=== PATIENT | male | born 1940 | race Hispanic/Latino ===

== ENCOUNTER 2017-10-23 11:35 | Emergency (ER) | payer MEDICARE ==
[2017-10-23 11:37] VITALS: PULSE 120; BMI 33.0
[2017-10-23 11:54] VITALS: O2SAT 97
[2017-10-23] MEDS ORDERED: Sodium Chloride 0.9% 1,000 ML IV SCH (12:00)
--- NOTE | 2017-10-23 12:10 | ED PDOC ---
Arrival/HPI - General Chief Complaint: Trauma Time Seen by Provider: 10/23/17 11:43 Historian: Patient - History of Present Illness Narrative History of Present Illness (Text): 10/23/17 12:00 77 year old male, with past medical history of hypertension, CHF, and diabetes, presents to the Emergency department accompanied with complaining of multiple falls in the past week. Patient informs associated mild weakness. Patient denies any loss of consciousness but states mild headache. Patient denies any fever, chills, nausea, vomiting, diarrhea, dysuria, abdominal pain, chest pain, shortness of breath or any other complaints. PMD: Dr. Jha Time/Duration: 1 week Symptom Onset: Gradual Symptom Course: Unchanged Quality: Aching Activities at Onset: Light Context: Home Past Medical History - Provider Review Nursing Documentation Reviewed: Yes - Infectious Disease Hx of Infectious Diseases: None - Tetanus Immunization Tetanus Immunization: Unknown - Cardiac Hx Cardiac Disorders: Yes (CAD w/ stents, AFIB) Hx Congestive Heart Failure: Yes Hx Hypertension: Yes - Pulmonary Hx Respiratory Disorders: Yes Hx Pneumonia: Yes - Neurological Hx Dementia: Yes - HEENT Hx HEENT Disorder: No - Renal Hx Kidney Stones: Yes - Endocrine/Metabolic Hx Diabetes Mellitus Type 2: Yes - Hematological/Oncological Other/Comment: blood transfusion - Integumentary Hx Dermatological Disorder: No - Musculoskeletal/Rheumatological Hx Arthritis: Yes Hx Falls: Yes - Gastrointestinal Hx Diverticulitis: Yes Other/Comment: weight loss - Genitourinary/Gynecological Hx Genitourinary Disorders: Yes (renal stents) - Psychiatric Hx Emotional Abuse: No Hx Physical Abuse: No Hx Substance Use: No - Surgical History Hx Cardiac Catheterization: Yes Other/Comment: 1994 diverticulitis led to colon resection and colostomy for 3 months then reversed, incisional hernia repair and insertion of mesh, exp lap removal of mesh, then reinserted again11/11/2012, bilateral stent removal done today, ptca with stent, cardiac cath, picc line inserted and removed - Anesthesia Hx Anesthesia: Yes Hx Anesthesia Reactions: No Hx Malignant Hyperthermia: No - Suicidal Assessment Feels Threatened In Home Enviroment: No Family/Social History - Physician Review Nursing Documentation Reviewed: Yes Family/Social History: No Known Family HX Smoking Status: Former Smoker Hx Alcohol Use: No Hx Substance Use: No Hx Substance Use Treatment: No Allergies/Home Meds Allergies/Adverse Reactions: Allergies TOMATOES Allergy (Unknown, Uncoded 10/23/17 11:47) ANGIOEDEMA Review of Systems - Physician Review All systems were reviewed & negative as marked: Yes - Review of Systems Constitutional: Normal. absent: Fevers Eyes: Normal ENT: Normal Respiratory: Normal. absent: SOB Cardiovascular: Normal. absent: Chest Pain Gastrointestinal: Normal. absent: Abdominal Pain, Diarrhea, Nausea, Vomiting Genitourinary Male: Normal. absent: Dysuria Musculoskeletal: Normal Skin: Normal Neurological: Headache Endocrine: Normal Hemo/Lymphatic: Normal Psychiatric: Normal Physical Exam Vital Signs Reviewed: Yes Vital Signs Temp Pulse Resp BP Pulse Ox 10/23/17 19:47 70 18 180/78 H 97 10/23/17 15:33 97.5 F L 60 20 167/97 H 97 10/23/17 11:53 97.7 F 59 L 18 162/88 H 97 Temperature: Afebrile Blood Pressure: Hypertensive Pulse: Regular Respiratory Rate: Normal Appearance: Positive for: Well-Appearing, Non-Toxic, Comfortable, Other (Obese) Pain Distress: None Mental Status: Positive for: Alert and Oriented X 3 - Systems Exam Head: Present: Atraumatic, Normocephalic Pupils: Present: PERRL Extroacular Muscles: Present: EOMI Conjunctiva: Present: Normal Mouth: Present: Moist Mucous Membranes Neck: Present: Normal Range of Motion Respiratory/Chest: Present: Clear to Auscultation, Good Air Exchange. No: Respiratory Distress, Accessory Muscle Use Cardiovascular: Present: Regular Rate and Rhythm, Normal S1, S2, Other (well healed midline surgical scar on chest). No: Murmurs Abdomen: Present: Normal Bowel Sounds. No: Tenderness, Distention, Peritoneal Signs Back: Present: Normal Inspection Upper Extremity: Present: Normal Inspection. No: Cyanosis, Edema Lower Extremity: Present: Normal Inspection. No: Edema Neurological: Present: GCS=15, CN II-XII Intact, Speech Normal Skin: Present: Warm, Dry, Normal Color. No: Rashes Psychiatric: Present: Alert, Oriented x 3, Normal Insight, Normal Concentration Medical Decision Making ED Course and Treatment: 10/23/17 12:11 Impression: 77 year old male presents to the Emergency department s/p multiple falls. Plan: -- CT of Head w/o contrast -- EKG -- Labs -- Chest X-ray -- IV Fluids -- Urine Culture -- Urinalysis -- Reassess and disposition Progress Notes: 10/23/17 13:10 EKG: Ordered, reviewed, and independently interpreted the EKG. Rate : 57 BPM Rhythm : Sinus bradycardia. Interpretation : Right BBB. Left axis deviation. 10/23/17 13:39 CT of head reviewed by radiologist, shows no acute findings. 10/23/17 13:39 Chest X-ray reviewed by radiologist, shows no active disease. 10/23/17 17:53 Discussed lab results with Dr. Jha, who is aware and agrees with plan to discharge patient with antibiotics and follow-up instructions with PMD. - Lab Interpretations Lab Results: 10/23/17 12:23 10/23/17 16:35 Lab Results 10/23/17 16:35: Sodium 144, Potassium 4.9, Chloride 108 H, Carbon Dioxide 29, Anion Gap 12, BUN 21, Creatinine 1.1, Est GFR ( Amer) > 60, Est GFR (Non- Af Amer) > 60, Random Glucose 197 H, Calcium 10.2, Magnesium 1.9, Total Bilirubin 0.6, AST 28, ALT 28, Alkaline Phosphatase 107, Lactate Dehydrogenase 627, Total Creatine Kinase 59, Troponin I 0.02 D, NT-Pro-B Natriuret Pep 621 H , Total Protein 7.2, Albumin 3.9, Globulin 3.3, Albumin/Globulin Ratio 1.2 10/23/17 13:40: Urine Color Yellow, Urine Appearance Sl cloudy, Urine pH 6.0, Ur Specific [place] 1.020, Urine Protein 30 H, Urine Glucose (UA) >=1000, Urine Ketones Negative, Urine Blood Trace-intact H, Urine Nitrate Positive H, Urine Bilirubin Negative, Urine Urobilinogen 0.2, Ur Leukocyte Esterase Small H, Urine RBC 2 - 5, Urine WBC 20 - 25, Ur Epithelial Cells 1 - 3, Amorphous Sediment Few, Urine Bacteria Many 10/23/17 12:23: WBC 6.9, RBC 5.38, Hgb 16.5, Hct 46.9, MCV 87.2, MCH 30.7, MCHC 35.2, RDW 13.6, Plt Count 135, MPV 9.7, Gran % 60.5, Lymph % (Auto) 19.5 L, [place] % (Auto) 16.7 H, Eos % (Auto) 3.2, Baso % (Auto) 0.1, Gran # 4.16, Lymph # (Auto) 1.3, [place] # (Auto) 1.2 H, Eos # (Auto) 0.2, Baso # (Auto) 0.01 - RAD Interpretation Radiology Orders: 10/23/17 12:00 HEAD W/O CONTRAST [CT] Stat CHEST PORTABLE [RAD] Stat Disaster Recovery Analyst: Radiologist - EKG Interpretation Interpreted by ED Physician: Yes Type: 12 lead EKG - Medication Orders Current Medication Orders: Sodium Chloride (Sodium Chloride 0.9%) 1,000 mls @ 100 mls/hr IV .Q10H TIFFANY Last Admin: 10/23/17 12:25 Dose: 100 mls/hr eMAR Start Stop Document 10/23/17 12:25 OCS (Rec: 10/23/17 12:26 OCS [id number]) Intravenous Solution Start Date 10/23/17 Start Time 12:25 - Scribe Statement The provider has reviewed the documentation as recorded by the Scribe Rich [place]. All medical record entries made by the Scribe were at my direction and personally dictated by me. I have reviewed the chart and agree that the record accurately reflects my personal performance of the history, physical exam, medical decision making, and the department course for this patient. I have also personally directed, reviewed, and agree with the discharge instructions and disposition. Disposition/Present on Arrival - Present on Arrival Any Indicators Present on Arrival: No History of DVT/PE: No History of Uncontrolled Diabetes: No Urinary Catheter: No History of Decub. Ulcer: No History Surgical Site Infection Following: None - Disposition Have Diagnosis and Disposition been Completed?: Yes Diagnosis: UTI (urinary tract infection) Disposition: HOME/ ROUTINE Disposition Time: 14:10 Patient Problems: Current Active Problems Problem Status Onset Urinary tract infection Acute Condition: GOOD Discharge Instructions (ExitCare): Asymptomatic Bacteriuria Additional Instructions: Thank you for letting us take care of you today. The emergency medical care you received today was directed at your acute symptoms. If you were prescribed any medication, please fill it and take as directed. It may take several days for your symptoms to resolve. Return to the Emergency Department if your symptoms worsen, do not improve, or if you have any other problems. Please contact your doctor or call one of the physicians/clinics you have been referred to that are listed on the Patient Visit Information form that is included in your discharge packet. Bring any paperwork you were given at discharge with you along with any medications you are taking to your follow up visit. Our treatment cannot replace ongoing medical care by a primary care provider (PCP) outside of the emergency department. Thank you for allowing the [facility] team to be part of your care today. Follow up with Dr. Jha in 3-4 days for re-evaluation and further management. Prescriptions: Nitrofurantoin Macrocrystals [Macrobid] 100 mg PO BID #14 cap Referrals: Alfonso Jha, [Primary Care Provider] - Follow up with primary Forms: [employer] ([place])
--- NOTE | 2017-10-23 12:20 | RAD ---
HISTORY: r/o infiltrate COMPARISON: 04/05/2016 FINDINGS: LUNGS: No active pulmonary disease. PLEURA: No significant pleural effusion identified, no pneumothorax apparent. CARDIOVASCULAR: Normal. OSSEOUS STRUCTURES: No significant abnormalities. VISUALIZED UPPER ABDOMEN: Normal. OTHER FINDINGS: None. IMPRESSION: No active disease.
[2017-10-23 12:40] LABS: BASO # 0.01 K/mm3 (0.0-2.0); BASO % 0.1 % (0.0-3.0); EOS # 0.2 (0.0-0.7); EOS % 3.2 % (1.5-5.0); GRAN # 4.16 (1.4-6.5); GRAN % 60.5 % (50.0-68.0); HEMOGLOBIN 16.5 g/dL (14.0-18.0); LYMPH # 1.3 (1.2-3.4); LYMPH % 19.5 % (22.0-35.0); MEAN CELL VOLUME 87.2 fl (80.0-105.0); MEAN CORPUSCULAR HEMOGLOBIN 30.7 pg (25.0-35.0); MEAN CORPUSCULAR HGB CONC 35.2 g/dl (31.0-37.0); MEAN PLATELET VOLUME 9.7 fl (7.0-11.0); MONO # 1.2 (0.1-0.6); MONO % 16.7 % (1.0-6.0); RBC 5.38 10^6/uL (3.5-6.1); RED CELL DISTRIBUTION WIDTH 13.6 % (11.5-14.5); WHITE BLOOD COUNT 6.9 10^3/ul (4.5-11.0)
--- NOTE | 2017-10-23 13:02 | CT ---
PROCEDURE: CT HEAD WITHOUT CONTRAST. HISTORY: multiple falls - c/o headache COMPARISON: 04/05/2016 TECHNIQUE: Axial computed tomography images were obtained through the head/brain without intravenous contrast. Radiation dose: Total exam DLP = 1017 mGy-cm. This CT exam was performed using one or more of the following dose reduction techniques: Automated exposure control, adjustment of the mA and/or kV according to patient size, and/or use of iterative reconstruction technique. FINDINGS: HEMORRHAGE: No intracranial hemorrhage. BRAIN: No mass effect or edema. No atrophy or chronic microvascular ischemic changes. VENTRICLES: Unremarkable. No hydrocephalus. CALVARIUM: Unremarkable. PARANASAL SINUSES: Unremarkable as visualized. No significant inflammatory changes. MASTOID AIR CELLS: Unremarkable as visualized. No inflammatory changes. OTHER FINDINGS: None. IMPRESSION: No acute findings
[2017-10-23 14:04] LABS: URINE BILIRUBIN NEGATIVE (NEGATIVE); URINE BLOOD TRACE-INTACT (NEGATIVE); URINE GLUCOSE (UA) >=1000 mg/dL (NEGATIVE); URINE LEUKOCYTE ESTERASE SMALL Leu/uL (NEGATIVE); URINE PROTEIN 30 mg/dL (<30 mg/dL); URINE UROBILINOGEN 0.2 E.U./dL (<1 E.U./dL)
[2017-10-23 14:06] LABS: URINE APPEARANCE SL CLOUDY (CLEAR); URINE COLOR YELLOW (YELLOW)
[2017-10-23 14:11] LABS: URINE WBC 20 - 25 /hpf (0-6)
[2017-10-23 14:12] LABS: URINE BACTERIA MANY (NEG)
[2017-10-23 14:13] LABS: URINE AMORPHOUS SEDIMENT FEW
[2017-10-23 15:34] VITALS: TEMP 97.5
[2017-10-23 17:15] LABS: ALB/GLOB RATIO 1.2 (1.1-1.8); ALBUMIN 3.9 g/dL (3.0-4.8); ALT/SGPT 28 U/L (7-56); AST/SGOT 28 U/L (17-59); BLOOD UREA NITROGEN 21 mg/dL (7-21); CALCIUM 10.2 mg/dL (8.4-10.5); GFR AFRICAN-AMERICAN > 60; GFR NON-AFRICAN AMERICAN > 60
[2017-10-23 17:49] LABS: B-TYPE NATRIURETIC PEPTIDE 621 pg/mL (0-450); TROPONIN I 0.02 ng/mL
[2017-10-23 19:47] VITALS: PULSE 70; RESP 18
[2017-10-23 19:53] VITALS: BP 180/78
--- NOTE | 2017-10-23 20:19 | CARD ---
APPROVED REPORT EKG Measurement Heart [id number] <Conclusion> Sinus bradycardia with 1st degree AV block Left axis deviation Right bundle branch block Minimal voltage criteria for LVH, may be normal variant T wave abnormality, consider lateral ischemia Abnormal ECG
== END 2017-10-23 21:00 | disposition home or self-care (01) ==
LOC: ED 11:35
DX: N39.0 Urinary tract infection, site not specified (principal); E11.9 Type 2 diabetes mellitus without complications; I10 Essential (primary) hypertension; I48.91 Unspecified atrial fibrillation; I25.10 Atherosclerotic heart disease of native coronary artery without angina pectoris; Z87.891 Personal history of nicotine dependence
CPT/HCPCS: 70450; 71045; 80053; 81001; 82550; 83615; 83735; 83880; 84484; 85025; 87086; 87181; 93005; 99285; J7040

== ENCOUNTER 2017-12-01 20:27 | Emergency (ER) | payer MEDICARE ==
[2017-12-01 20:28] VITALS: PULSE 120
--- NOTE | 2017-12-01 20:49 | ED PDOC ---
Arrival/HPI - General Time Seen by Provider: 12/01/17 20:40 Historian: Patient, Spouse - History of Present Illness Narrative History of Present Illness (Text): 12/01/17 20:47 This 77 yo male is brought to this ED by BLS for evaluation of head injury x [employer]. Patient stated he accidentally was hit his forehead with door. Denies LOC , neck pain, APPLE, diplopia, dysarthria, weakness, paresthesias, or abnormal gait. Last tetanus is unk. Time/Duration: Other (see hpi) Context: Home Past Medical History - Provider Review Nursing Documentation Reviewed: Yes - Infectious Disease Hx of Infectious Diseases: None - Tetanus Immunization Tetanus Immunization: Unknown - Cardiac Hx Cardiac Disorders: Yes (CAD w/ stents, AFIB) Hx Congestive Heart Failure: Yes Hx Hypertension: Yes - Pulmonary Hx Respiratory Disorders: Yes Hx Pneumonia: Yes - Neurological Hx Dementia: Yes - HEENT Hx HEENT Disorder: No - Renal Hx Kidney Stones: Yes - Endocrine/Metabolic Hx Diabetes Mellitus Type 2: Yes - Hematological/Oncological Other/Comment: blood transfusion - Integumentary Hx Dermatological Disorder: No - Musculoskeletal/Rheumatological Hx Arthritis: Yes Hx Falls: Yes - Gastrointestinal Hx Diverticulitis: Yes Other/Comment: weight loss - Genitourinary/Gynecological Hx Genitourinary Disorders: Yes (renal stents) - Psychiatric Hx Emotional Abuse: No Hx Physical Abuse: No Hx Substance Use: No - Surgical History Hx Cardiac Catheterization: Yes Other/Comment: 1994 diverticulitis led to colon resection and colostomy for 3 months then reversed, incisional hernia repair and insertion of mesh, exp lap removal of mesh, then reinserted again11/11/2012, bilateral stent removal done today, ptca with stent, cardiac cath, picc line inserted and removed - Anesthesia Hx Anesthesia: Yes Hx Anesthesia Reactions: No Hx Malignant Hyperthermia: No - Suicidal Assessment Feels Threatened In Home Enviroment: No Family/Social History - Physician Review Nursing Documentation Reviewed: Yes Family/Social History: Other (noncontributory) Smoking Status: Former Smoker Hx Alcohol Use: No Hx Substance Use: No Hx Substance Use Treatment: No Allergies/Home Meds Allergies/Adverse Reactions: Allergies TOMATOES Allergy (Unknown, Uncoded 10/23/17 11:47) ANGIOEDEMA Review of Systems - Review of Systems Constitutional: Normal. absent: Fatigue, Weight Change, Fevers Eyes: Normal ENT: Normal Respiratory: Normal Cardiovascular: Normal Gastrointestinal: Normal Genitourinary Male: Normal Musculoskeletal: Normal Skin: Laceration Neurological: Normal Endocrine: Normal Hemo/Lymphatic: Normal Psychiatric: Normal Physical Exam Vital Signs Temp Pulse Resp BP Pulse Ox 12/02/17 02:29 98.2 F 92 H 18 149/92 H 96 12/02/17 01:32 93 H 18 171/92 H 96 12/01/17 21:14 98.3 F 87 18 171/83 H 96 12/01/17 20:49 98.2 F 80 18 98 Temperature: Afebrile Blood Pressure: Normal Pulse: Regular Respiratory Rate: Normal Appearance: Positive for: Well-Appearing, Non-Toxic, Comfortable Pain Distress: None Mental Status: Positive for: Alert and Oriented X 3 - Systems Exam Head: Present: Normocephalic, Other ((+) left suprapubic laceration with surrounding ecchymosis. No raccoon sign. no barrera sign) Pupils: Present: PERRL, Other (no hyhema) Extroacular Muscles: Present: EOMI. No: Entrapment Conjunctiva: Present: Normal Ears: Present: Normal, NORMAL TM, Other (no hemotympanum) Mouth: Present: Moist Mucous Membranes Nose (External): Present: Atraumatic Nose (Internal): Present: Normal Inspection Neck: Present: Normal Range of Motion. No: Meningeal Signs, MIDLINE TENDERNESS , Paraspinal Tenderness Respiratory/Chest: Present: Clear to Auscultation, Good Air Exchange. No: Respiratory Distress, Accessory Muscle Use Cardiovascular: Present: Regular Rate and Rhythm, Normal S1, S2. No: Murmurs Abdomen: No: Tenderness, Distention, Peritoneal Signs Back: Present: Normal Inspection. No: CVA Tenderness Upper Extremity: Present: Normal Inspection, Normal ROM. No: Cyanosis, Edema Lower Extremity: Present: Normal Inspection, Normal ROM. No: Edema Neurological: Present: GCS=15, CN II-XII Intact, Speech Normal Skin: Present: Warm, Dry, Normal Color. No: Rashes Psychiatric: Present: Alert, Oriented x 3, Normal Insight, Normal Concentration Medical Decision Making ED Course and Treatment: 12/02/17 00:16 Re-evaluation. Patient feels better. Discussed results and plan with patient who expresses understanding. All questions answered and there is agreement with the plan to discharge home with instructions. Patient stable for discharge. Return if symptoms persist or worsen. I recommended patient to see his pmd in 1-2 days, for revaluation and wound check. To keep wound clean and dry for 2 days, then clean wound daily with soap and water. Return if symptoms worsen. CT Head was negative for ICH Re-evaluation Time: 00:17 Reassessment Condition: Re-examined, Improved - RAD Interpretation Narrative RAD Interpretations (Text): 12/02/17 00:18 CT HEAD W/O IMPRESSION: 1. No definite intracranial hemorrhage. 2. Nonspecific white matter changes. 3. Incidental/non-acute findings are described above. Radiology Orders: 12/01/17 21:28 HEAD W/O CONTRAST [CT] Stat - Medication Orders Current Medication Orders: Discontinued Medications Cephalexin Monohydrate (Keflex) 500 mg PO STAT STA PRN Reason: Protocol Stop: 12/01/17 21:40 Last Admin: 12/01/17 22:26 Dose: 500 mg Tetanus/Reduced Diphtheria/Acell Pertussis (Boostrix Vaccine Inj) 0.5 ml IM .ONCE ONE Stop: 12/01/17 21:40 Last Admin: 12/01/17 21:52 Dose: 0.5 ml MAR Immunization Data Document 12/01/17 21:52 IT (Rec: 12/01/17 21:52 IT [id number]) Immunization Data Vaccine Information Sheet Given Yes Immunization Registry Document 12/01/17 21:52 IT (Rec: 12/01/17 21:52 IT [id number]) Immunization Registry Consent Date 10/23/17 - Procedure PROCEDURE NOTE (Text): 12/02/17 00:17 PROCEDURE: LACERATION REPAIR Performed by the emergency provider Location: left supraorbital Length: 3 cm Description: clean wound edges, no foreign bodies Distal CMS: Normal. No deficits. Neurovascularly intact. Anesthesia: Lidocaine 1% with Epi, approx. 1 cc Preparation: The wound was cleaned with NS and Betadine. The area was prepped and draped in the usual sterile fashion. Exploration: The wound was explored and no foreign bodies were found. Procedure: The wound was closed with Vicryl, 6-0, interrupted, single layer. There was good approximation. In total, 5 sutures were used. Post-Procedure: Good closure and hemostasis. The patient tolerated the procedure well and there were no complications. CSM remains intact. Post procedure dressing applied. Disposition/Present on Arrival - Present on Arrival Any Indicators Present on Arrival: No History of DVT/PE: No History of Uncontrolled Diabetes: No Urinary Catheter: No History Surgical Site Infection Following: None - Disposition Have Diagnosis and Disposition been Completed?: Yes Diagnosis: Head injury, Facial laceration, Periorbital ecchymosis of left eye Disposition: HOME/ ROUTINE Disposition Time: 00:19 Patient Plan: Discharge Condition: GOOD Discharge Instructions (ExitCare): Laceration Repair With Stitches (DC) Additional Instructions: Call private doctor follow up visit in 1-2 days. keep facial wound clean and dry for 2 days, then clean wound daily with soap and water. Return to emergency if wound becomes infected. Sutures are absorbable and they will fall off within 2 weeks. Prescriptions: Cephalexin [cephalexin] 500 mg PO QID #28 cap Referrals: Alfonso Jha DO [Primary Care Provider] - Follow up with primary
[2017-12-01 20:53] VITALS: BMI 33.2
[2017-12-01 20:55] VITALS: RESP 18
[2017-12-01 21:15] VITALS: O2SAT 96
[2017-12-01] MEDS ORDERED: TDAP Vaccine 0.5 mL Syr IM ONE (21:39)
--- NOTE | 2017-12-01 23:55 | CT ---
EXAM: CT Head Without Intravenous Contrast CLINICAL HISTORY: 77 years old, male; Injury or trauma; Fall; Initial encounter; Blunt trauma (contusions or hematomas); Consciousness not specified; Additional info: APPLE S/P trauma TECHNIQUE: Axial computed tomography images of the head/brain without intravenous contrast. All CT scans at this facility use one or more dose reduction techniques, viz.: automated exposure control; ma/kV adjustment per patient size (including targeted exams where dose is matched to indication; i.e. head); or iterative reconstruction technique. Coronal and sagittal reformatted images were created and reviewed. COMPARISON: CT - HEAD W/O CONTRAST 2017-10-23 12:42 FINDINGS: Limitations: Motion artifact - mild. Brain: [id number] atrophy. No definite intracranial hemorrhage. No mass. Few scattered foci of decreased attenuation within periventricular/subcortical white matter. No definite edema. Ventricles: No hydrocephalus. Bones/joints: No acute fracture. Soft tissues: Unremarkable. Vasculature: Minimal atherosclerotic disease of intracranial arteries. Sinuses: Scattered minimal mucosal thickening. Mastoid air cells: No mastoid effusion. Orbits: Unremarkable as visualized. IMPRESSION: 1. No definite intracranial hemorrhage. 2. Nonspecific white matter changes. 3. Incidental/non-acute findings are described above.
[2017-12-02 02:30] VITALS: BP 149/92; PULSE 92; TEMP 98.2
== END 2017-12-02 02:32 | disposition home or self-care (01) ==
LOC: ED 20:27
DX: S01.81XA Laceration without foreign body of other part of head, initial encounter (principal); S05.12XA Contusion of eyeball and orbital tissues, left eye, initial encounter; W01.190A Fall on same level from slipping, tripping and stumbling with subsequent striking against furniture, initial encounter; Y92.002 Bathroom of unspecified non-institutional (private) residence as the place of occurrence of the external cause; Z23 Encounter for immunization

== ENCOUNTER 2017-12-30 14:29 | Inpatient (IN) | payer MEDICARE ==
[2017-12-30 14:29] VITALS: PULSE 120
--- NOTE | 2017-12-30 15:11 | ED PDOC ---
Arrival/HPI - General Chief Complaint: Weakness/Neurological Deficit Time Seen by Provider: 12/30/17 14:45 Historian: Patient, Spouse () EM Caveat: Dementia - History of Present Illness Narrative History of Present Illness (Text): 12/30/17 14:42 A 77 year old male, whose past medical history includes severe dementia, is brought in by and presents to the emergency department for further evaluation sent by PMD. Per , patient has sustained frequent falls initially on 12/02/17. Patient was seen and treated in the ER for facial wound laceration, which was repaired and obtained a head CT scan which were normal at that time. Patient was noted to be fine at the time and therefore discharged home. states afterwards patient had fallen at home and since then remained on the bedroom floor for the past 4 weeks. During this time, patient's made an area on the floor to keep patient comfortable, and he is able to sit but refuses to get up from the floor. Per , patient's behavior has deteriorated, as he has become more aggressive/combative. Patient is able to eat but has had decreased appetite for the last 3 weeks. Today, Dr Jha came to check on him at home and expressed concern for his behavior as well as his current living situation, pt was directed to visit the ER for further evaluation. Patient notes experiencing occasional back pain and right arm pain ( had arm pain for years due to severe arthritis). Patient's states patient denied any chest pain, shortness of breath, vomiting, abdominal pain, urinary output changes, gross bleeding, or any other complaints at this time. pt is here for further eval pt's without other complaints. PMD: Dr. Jha pt is right hand dominate pt with severe dementia (oriented to person) Time/Duration: Other (1 month) Symptom Onset: Gradual Symptom Course: Unchanged Activities at Onset: Rest Context: Home Past Medical History - Provider Review Nursing Documentation Reviewed: Yes - Travel History Have you recently traveled outside [place] w/in the past 3 mons?: No - Past History Past History: No Previous - Infectious Disease Hx of Infectious Diseases: None - Tetanus Immunization Tetanus Immunization: Unknown - Cardiac Hx Cardiac Disorders: Yes (CAD w/ stents, AFIB) Hx Congestive Heart Failure: Yes Hx Hypertension: Yes - Pulmonary Hx Respiratory Disorders: Yes Hx Pneumonia: Yes - Neurological Hx Dementia: Yes - HEENT Hx HEENT Disorder: No - Renal Hx Kidney Stones: Yes - Endocrine/Metabolic Hx Diabetes Mellitus Type 2: Yes - Hematological/Oncological Other/Comment: blood transfusion - Integumentary Hx Dermatological Disorder: No - Musculoskeletal/Rheumatological Hx Arthritis: Yes Hx Falls: Yes - Gastrointestinal Hx Diverticulitis: Yes Other/Comment: weight loss - Genitourinary/Gynecological Hx Genitourinary Disorders: Yes (renal stents) - Psychiatric Hx Emotional Abuse: No Hx Physical Abuse: No Hx Substance Use: No - Surgical History Hx Cardiac Catheterization: Yes Other/Comment: 1994 diverticulitis led to colon resection and colostomy for 3 months then reversed, incisional hernia repair and insertion of mesh, exp lap removal of mesh, then reinserted again11/11/2012, bilateral stent removal done today, ptca with stent, cardiac cath, picc line inserted and removed - Anesthesia Hx Anesthesia: Yes Hx Anesthesia Reactions: No Hx Malignant Hyperthermia: No - Suicidal Assessment Feels Threatened In Home Enviroment: No Family/Social History - Physician Review Nursing Documentation Reviewed: Yes Family/Social History: No Known Family HX Smoking Status: Former Smoker Hx Alcohol Use: No Hx Substance Use: No Hx Substance Use Treatment: No Allergies/Home Meds Allergies/Adverse Reactions: Allergies TOMATOES Allergy (Unknown, Uncoded 10/23/17 11:47) ANGIOEDEMA Home Medications: Home Meds Medication Instructions Recorded Confirmed Allopurinol [Zyloprim] 1 tab PO DAILY 12/30/17 12/30/17 Donepezil [Aricept] 1 tab PO HS 12/30/17 12/30/17 Metoprolol Tartrate [Lopressor] 25 mg PO BID 12/30/17 12/30/17 Omeprazole [Omeprazole] 1 tab PO DAILY 12/30/17 12/30/17 Rosuvastatin Calcium [Crestor] 1 tab PO DAILY 12/30/17 12/30/17 Sertraline [Zoloft] 1 tab PO DAILY 12/30/17 12/30/17 Review of Systems - Physician Review All systems were reviewed & negative as marked: Yes - Review of Systems Constitutional: Fatigue Eyes: Normal ENT: Normal Respiratory: absent: SOB Cardiovascular: absent: Chest Pain Gastrointestinal: Appetite Changes (decreased appetite for last 3 weeks). absent: Vomiting Genitourinary Male: absent: Urinary Output Changes Musculoskeletal: Back Pain (occasional) Skin: Normal Neurological: Other (altered behavior) Endocrine: Normal Hemo/Lymphatic: Normal Psychiatric: Normal Physical Exam - Physical Exam Narrative Physical Exam (Text): 12/30/17 1450 General: alert/awake, GCS = 15, oriented x 1 (not to date/time/place), resting in bed, uncomfortable, cooperative, interactive; NAD Head: NC/AT EYE: PERRLA, EOMI, sclera anicteric, no nystagmus, no photophobia; visual field intact b/l Facial: WNL Oral: uvula/tongue are midline, no exudate/lesions, no drooling/stridor, no dysphonia; fair dentitions; mild dry oral mucosa NECK: intact ROM, no midline tenderness, no nuchal rigidity, no meningeal signs ; no step off Chest: CTA b/l, no w/r/r; no tachypenia, no accessory muscle use noted Chest Wall: no focal tenderness, no gross deformities, no crepitus, no lesions/ rashes noted Cardiac: +S1, +S2, no m/r/r, no tachycardia Abdominal: +BS, soft/nd/nt, well nourished/obese patient; no masses/rebound/ guarding/rigidity; no sanchez's sign, no mcburney's point tenderness Extremities: decr ROM, strength 4+/5 grossly intact in all limbs, neurovasc intact b/l; NOT ambulatory; no gross deformities noted BACK: no step off, no midline tenderness, NO crepitus, no gross deformities noted SKIN: cap refill ~ 1 sec, no ulcerations, no petechiae, no rashes; no gross pallor; no discolorations noted; no lesions/ulcerations noted NEURO: CNII-XII WNL, no facial asymmetries, no slurr speech, oriented x 1 NIH stroke scale ~ 0 Psych: normal insight, flat affect; follows command with ease Vital Signs Reviewed: Yes Vital Signs Pulse Resp BP Pulse Ox 12/30/17 20:12 88 18 168/89 H 97 Temperature: Afebrile Blood Pressure: Hypertensive Pulse: Regular Respiratory Rate: Normal Appearance: Positive for: Well-Appearing, Non-Toxic, Uncomfortable Pain Distress: None Mental Status: No: Alert and Oriented X 3 (oriented x 1 (not in date/time/place) ) - Systems Exam Head: Present: Atraumatic, Normocephalic Medical Decision Making ED Course and Treatment: 12/30/17 14:47 Impression: 77 year old male brought in for further evaluation. r/o fx, r/o bleed/cva/ischemia, r/o rhabdo, r/o infection Plan: -- Head CT -- Chest X-ray -- Labs -- Venous Blood Gas -- Blood Culture -- Right Hip X-Ray -- Lumbar Spinal X-Ray -- Urinalysis -- Reassess and disposition Prior Visits: Notes and results from previous visits were reviewed. Patient was last seen in the emergency department on 12/01/2017 for evaluation of head injury. Patient was discharged home. 350pm pt remained comfortable, at baseline mental status pt does not appear to be in any distress pt/ are awaiting for lab results/diagnostic results and final disposition Progress Notes: 12/30/17 17:[address] Jha, who has been made aware of patient's condition, medical complaints, and Emergency department findings, and agrees with emergency department management/txt; will admit patient. Requests for consults Dr. Buenrostro and Dr. Franco. pt/ are made aware of pt's medical results agrees with admission Re-evaluation Time: 19:00 Reassessment Condition: Unchanged - Lab Interpretations Lab Results: 12/30/17 16:34 12/30/17 16:34 Lab Results 12/30/17 17:30: PT 11.6, INR 1.02, APTT 31.2 12/30/17 16:34: Serum Osmolality 300 12/30/17 16:34: Sodium 140, Chloride 104, Potassium 5.2 H, Carbon Dioxide 25, Anion Gap 16, BUN 18, Creatinine 1.4, Est GFR ( Amer) 60, Est GFR (Non- Af Amer) 49, Random Glucose 263 H, Calcium 10.3, Phosphorus 3.1, Magnesium 1.7, Total Bilirubin 0.6, AST 31, ALT 33, Alkaline Phosphatase 102, Total Creatine Kinase 39, Troponin I 0.02, NT-Pro-B Natriuret Pep 183, Total Protein 6.8, Albumin 3.7, Globulin 3.1, Albumin/Globulin Ratio 1.2 12/30/17 16:34: pO2 43, VBG pH 7.31 L, VBG pCO2 54.0, VBG HCO3 27.2, VBG Total CO2 28.9 H, VBG O2 Sat (Calc) 82.0 H, VBG Base Excess 0.0, VBG Potassium 5.6 H, Sodium 135.0, Chloride 106.0, Glucose 287 H, Lactate 1.3, FiO2 21.0, Venous Blood Potassium 5.6 H 12/30/17 16:34: WBC 5.3 D, RBC 5.16, Hgb 16.0, Hct 45.2, MCV 87.6, MCH 31.0, MCHC 35.4, RDW 13.9, Plt Count 147, MPV 10.8, Gran % 54.6, Lymph % (Auto) 24.2, [place] % (Auto) 16.7 H, Eos % (Auto) 4.1, Baso % (Auto) 0.4, Gran # 2.90, Lymph # (Auto) 1.3, [place] # (Auto) 0.9 H, Eos # (Auto) 0.2, Baso # (Auto) 0.02 I have reviewed the lab results: Yes Interpretation: Abnormal lab values (elevated GLUC; UTI) - RAD Interpretation Narrative RAD Interpretations (Text): 12/30/2017 17:[address] IMPRESSION: There is moderate atrophy with ventricular dilatation. Chronic microvascular changes are seen in the periventricular white matter on the right side. No acute intracranial findings. Dictator: Sukhdeep Rushing MD 12/30/17 19:06 PRELIM reading Chest X-ray shows no active disease. Right Hip X-Ray shows no fracture, no dislocation. Lumbar X-Ray shows osteoporosis, concerning frategal height, changes to L2, L3, L4, L5. Age-indeterminate. Abnormal curvature. Radiology Orders: 12/30/17 14:49 HEAD W/O CONTRAST [CT] Stat LS SPINE AP/LAT [RAD] Stat 12/30/17 14:50 CHEST ONE VIEW [RAD] Stat 12/30/17 14:51 HIP MIN 2V W/ PELVIS RT [RAD] Stat Volleyball Referee: ED Physician, Radiologist - EKG Interpretation EKG Interpretation (Text): 12/30/17 20:29 NSR at 75 bpm, LAD, RBBB, no ectopy, inverted T in leads III, V1, no st changes , ABNL EKG; changes compare with old ekg 09/2017 Interpreted by ED Physician: Yes Type: 12 lead EKG Comparison: Different from prev. EKG - Medication Orders Current Medication Orders: Discontinued Medications Aspirin (Aspirin) 325 mg PO STAT STA Stop: 12/30/17 17:53 Last Admin: 12/30/17 19:54 Dose: 325 mg - Scribe Statement The provider has reviewed the documentation as recorded by the Saeed Hernandez Provider Luisaibe Attestation: All medical record entries made by the Luisaibterri were at my direction and personally dictated by me. I have reviewed the chart and agree that the record accurately reflects my personal performance of the history, physical exam, medical decision making, and the department course for this patient. I have also personally directed, reviewed, and agree with the discharge instructions and disposition. Disposition/Present on Arrival - Present on Arrival Any Indicators Present on Arrival: No History of DVT/PE: No History of Uncontrolled Diabetes: No Urinary Catheter: No History of Decub. Ulcer: No History Surgical Site Infection Following: None - Disposition Have Diagnosis and Disposition been Completed?: Yes Diagnosis: Altered mental status, unspecified, Ambulatory dysfunction, UTI (urinary tract infection), Failure to thrive in adult, Weakness, Behavior disorder Disposition: HOSPITALIZED Disposition Time: 17:51 Patient Plan: Admission Condition: STABLE
[2017-12-30 16:41] LABS: VENOUS BLOOD GAS PO2 43 mm/Hg (30-55); VENOUS BLOOD PH 7.31 (7.32-7.43)
[2017-12-30 16:47] LABS: BASO # 0.02 K/mm3 (0.0-2.0); BASO % 0.4 % (0.0-3.0); EOS # 0.2 (0.0-0.7); EOS % 4.1 % (1.5-5.0); GRAN # 2.9 (1.4-6.5); GRAN % 54.6 % (50.0-68.0); LYMPH # 1.3 (1.2-3.4); LYMPH % 24.2 % (22.0-35.0); MEAN CELL VOLUME 87.6 fl (80.0-105.0); MEAN CORPUSCULAR HGB CONC 35.4 g/dl (31.0-37.0); MEAN PLATELET VOLUME 10.8 fl (7.0-11.0); MONO # 0.9 (0.1-0.6); MONO % 16.7 % (1.0-6.0); RBC 5.16 10^6/uL (3.5-6.1); RED CELL DISTRIBUTION WIDTH 13.9 % (11.5-14.5); WHITE BLOOD COUNT 5.3 10^3/ul (4.5-11.0)
[2017-12-30 16:52] LABS: ALB/GLOB RATIO 1.2 (1.1-1.8); ALBUMIN 3.7 g/dL (3.0-4.8); CALCIUM 10.3 mg/dL (8.4-10.5)
[2017-12-30 17:03] LABS: TROPONIN I 0.02 ng/mL
--- NOTE | 2017-12-30 17:05 | CT ---
PROCEDURE: CT HEAD WITHOUT CONTRAST. HISTORY: fell off chair, posterior scalp swelling, no loc COMPARISON: 12/01/2017 CT TECHNIQUE: Axial computed tomography images were obtained through the head/brain without intravenous contrast. Radiation dose: Total exam DLP = 831 mGy-cm. This CT exam was performed using one or more of the following dose reduction techniques: Automated exposure control, adjustment of the mA and/or kV according to patient size, and/or use of iterative reconstruction technique. FINDINGS: HEMORRHAGE: No intracranial hemorrhage. BRAIN: No mass effect or edema. There is moderate atrophy with ventricular dilatation. Chronic microvascular changes are seen in the periventricular white matter on the right side VENTRICLES: Moderately enlarged CALVARIUM: Unremarkable. PARANASAL SINUSES: Unremarkable as visualized. No significant inflammatory changes. MASTOID AIR CELLS: Unremarkable as visualized. No inflammatory changes. OTHER FINDINGS: None. IMPRESSION: There is moderate atrophy with ventricular dilatation. Chronic microvascular changes are seen in the periventricular white matter on the right side No acute intracranial findings
[2017-12-30 18:00] LABS: INR 1.02 (0.93-1.08); PARTIAL THROMBOPLASTIN TIME 31.2 Seconds (25.1-36.5); PROTHROMBIN TIME 11.6 SECONDS (9.4-12.5)
[2017-12-30 20:12] LABS: URINE BILIRUBIN NEGATIVE (NEGATIVE); URINE BLOOD TRACE-INTACT (NEGATIVE); URINE GLUCOSE (UA) 250 mg/dL (NEGATIVE); URINE LEUKOCYTE ESTERASE LARGE Leu/uL (NEGATIVE); URINE PROTEIN 30 mg/dL (<30 mg/dL)
[2017-12-30 20:15] LABS: URINE COLOR YELLOW (YELLOW)
[2017-12-30 20:16] LABS: URINE APPEARANCE CLOUDY (CLEAR)
[2017-12-30 20:27] LABS: URINE BACTERIA MANY (NEG); URINE WBC TNTC /hpf (0-6)
[2017-12-30] MEDS ORDERED: cefTRIAXone 1 gm 1 GM/100 ML BAG IVPB STA (20:27)
[2017-12-31 02:58] VITALS: BMI 30.7
[2017-12-31 08:08] VITALS: RESP 20
--- NOTE | 2017-12-31 08:33 | RAD ---
PROCEDURE: Radiographs of the Lumbar Spine. HISTORY: fell after 12/02 , has been on the floor x 4wks COMPARISON: No prior. FINDINGS: BONES: Normal alignment. No listhesis. No fracture. DISC SPACES: There is disc degeneration a multiple levels. OTHER FINDINGS: None. IMPRESSION: Disc degeneration. No evidence of compression fracture
--- NOTE | 2017-12-31 08:35 | RAD ---
PROCEDURE: Right Hip and pelvis Radiographs. HISTORY: fell COMPARISON: None. FINDINGS: BONES: Normal. No fracture. JOINTS: Normal. SOFT TISSUES: Normal. OTHER FINDINGS: None. IMPRESSION: Negative study
--- NOTE | 2017-12-31 08:35 | RAD ---
PROCEDURE: CHEST RADIOGRAPH, 1 VIEW HISTORY: fall COMPARISON: 10/23/2017 FINDINGS: LUNGS: Clear. PLEURA: No pneumothorax or pleural fluid seen. CARDIOVASCULAR: Normal. OSSEOUS STRUCTURES: No significant abnormalities. VISUALIZED UPPER ABDOMEN: Normal. OTHER FINDINGS: None. IMPRESSION: No active disease.
[2017-12-31] MEDS: cefTRIAXone 1 gm 1 GM/100 ML BAG IVPB SCH (09:55)
[2017-12-31] MEDS: Sodium Chloride 0.45% 1,000 ML IV SCH (09:55)
[2017-12-31] MEDS: Pantoprazole 40 mg EC Tab PO SCH (09:56)
[2017-12-31] MEDS ORDERED: Insulin Reg-LOW-Coverage SC SCH (11:30)
[2017-12-31 11:41] LABS: URINE BILIRUBIN NEGATIVE (NEGATIVE); URINE BLOOD SMALL (NEGATIVE); URINE GLUCOSE (UA) NEGATIVE (NEGATIVE); URINE LEUKOCYTE ESTERASE LARGE Leu/uL (NEGATIVE); URINE PROTEIN 30 mg/dL (<30 mg/dL); URINE UROBILINOGEN 0.2 E.U./dL (<1 E.U./dL)
[2017-12-31 11:45] LABS: URINE APPEARANCE SL CLOUDY (CLEAR); URINE COLOR YELLOW (YELLOW)
[2017-12-31] MEDS: Insulin Reg-MEDIUM-Coverage SC SCH ×4 (11:51→23:29)
[2017-12-31 11:52] LABS: URINE BACTERIA MANY (NEG); URINE WBC TNTC /hpf (0-6)
[2017-12-31 11:53] LABS: URINE AMORPHOUS SEDIMENT FEW
--- NOTE | 2017-12-31 12:31 | CARD ---
APPROVED REPORT EKG Measurement Heart [id number] <Conclusion> Normal sinus rhythm Right bundle branch block Left anterior fascicular block Bifascicular block PRWP T waves now upright V 3 -6 c/w ECG 10/23/17
--- NOTE | 2017-12-31 15:39 | CON ---
DATE: 12/31/2017 CARDIOLOGY CONSULTATION HISTORY OF PRESENT ILLNESS: The patient is a 77-year-old male who has recurrent falls. The patient has been progressively confused according to the history. There is a question of syncope noted. PAST MEDICAL HISTORY: Includes hypercholesterolemia and diabetes mellitus. SOCIAL HISTORY: Unable to obtain from the patient. REVIEW OF SYSTEMS: Unable to obtain from the patient. PHYSICAL EXAMINATION: GENERAL: The patient is mildly confused and lethargic. VITAL SIGNS: Blood pressure is 133/80, the heart rates in the 80s. NECK: Negative JVD. LUNGS: Without rales. HEART: Reveals S1, S2. EXTREMITIES: Without edema. LABORATORY DATA: EKG shows normal sinus rhythm with left anterior hemiblock and right bundle-branch block. Glucose is 261. Troponins are negative x1. Hemoglobin is 16. IMPRESSION: 1. Recurrent falls. 2. Questionable syncope. 3. Abnormal EKG. 4. Diabetes mellitus. 5. Hypercholesterolemia. 6. Dementia. Given these findings, we will obtain an echocardiogram to evaluate LV outflow obstruction and LV function. Ketan Franco MD
--- NOTE | 2017-12-31 20:22 | HP ---
HISTORY OF PRESENT ILLNESS: I know Dionicio very well from doing house calls on him. I saw him yesterday. He was on the floor lying next to his bed. He had fallen 3-4 weeks ago says his and she could not get him up and he did not want to get up, he wanted to stay on the floor. She has been taking care of him for the past 3-4 weeks on the floor. I saw him and I examined him. He is no worse for wear, but I sent him to the emergency room. His is having a very hard time with him at home. He has gotten a little bit weaker, decreased appetite, a little bit more confusion. Has dementia, urinary tract infection or any broken bones. He is comfortable. No apparent complaints to me. No pain. He is smiling, but demented. He is a little bit worse, could be from possible infection. PAST MEDICAL HISTORY: Dementia, coronary artery disease with stents, atrial fibrillation, hypertension, CHF, pneumonia, history of dementia, kidney stones, and type 2 diabetes. He has had blood transfusions in the past. He has arthritis. He has multiple falls, weight loss, diverticulitis, and renal stents. He had diverticulitis and had a colon resection and colostomy and then it was incisional hernia and hernia repair with mesh, multiple procedures. FAMILY HISTORY: No known family history. SOCIAL HISTORY: He is a former smoker. No alcohol. No drugs. ALLERGIES: HE IS ALLERGIC TO TOMATOES. MEDICATIONS: He has Zyloprim for gout, Aricept for dementia, Lopressor for blood pressure, omeprazole for GERD, Crestor for high cholesterol, and Zoloft for depression. REVIEW OF SYSTEMS: He is alert, smiling. He is fatigued. No acute pain. No acute vision or hearing changes. No shortness of breath or cough. No chest pain or palpitations. May be decreased appetite, lost a few pounds. No real problems urinating. No leg issues. Occasional back pain from time to time, none now. No swelling of the legs at this time. Presently confused. PHYSICAL EXAMINATION VITAL SIGNS: He has a 97.6 temperature, 87 pulse, 133/81 blood pressure, 20 respiratory rate, 97% O2 sat on room air. GENERAL: He is alert, but not oriented. He is alert x1. HEENT: His head is atraumatic and normocephalic. Extraocular muscles are intact. Pupils equal and reactive to light. Throat is moist. NECK: Supple. HEART: Regular rate. LUNGS: Decreased breath sounds, but clear to auscultation. No wheezes, rhonchi or rales. ABDOMEN: Soft, nontender. Positive bowel sounds. Obese. No guarding, no rebound, no CVA tenderness. EXTREMITIES: He can move all four extremities. No edema at this time. No back pain at this time. NEUROLOGIC: He is alert. Cranial nerves II-XII are grossly intact. GCS is 15, comfortable, smiling, laughing, in good spirits. LABORATORY DATA: He had a bunch of tests done. X-rays of the hip, pelvis, chest and lumbar spine showed degenerative changes, but okay, nothing broken. CAT scan of the head showed old chronic changes, but nothing acute. He has a urine, which showed many bacteria, so he has UTI, which I suspected. Sodium 140, potassium 5.2, BUN 80, creatinine 1.4, GFR is 49, sugar is 263. He will be on coverage plus I will put him back on his medications. Calcium is 10.3, phosphorous 3.1, magnesium 1.7, total bilirubin is 0.6, AST is 31, ALT is 33, alkaline phosphatase 102. Troponin I 0.02. BNP is 183, total protein 6.8. He has a 7.31 pH. INR is 1.12. White count 5.3, hemoglobin 16, hematocrit 45.2 with platelets 147. ASSESSMENT AND PLAN: He is here for fall for 3 weeks, change in mentation, dementia, urinary tract infection. He is going to need to overnight. He will be on IV antibiotics with Rocephin. Cardiology and Neurology consults. I had a long discussion with the . Also, physical therapy. Alfonso Jha DO MTDD
--- NOTE | 2018-01-01 03:08 | CON ---
DATE: HISTORY OF PRESENT ILLNESS: A 77-year-old white male with past medical history of dementia and came to the hospital because he was lying on the floor for few days and patient, as per , disoriented, aggressive and combative and came to the hospital with altered mental status. Called to evaluate the patient. PAST MEDICAL HISTORY: Dementia, pneumonia, kidney stone, diabetes type 2, arthritis and falls. MEDICATIONS: Allopurinol, Aricept, metoprolol, omeprazole, Zoloft. REVIEW OF SYSTEMS: A 10-point review of systems was negative except altered mental status. PHYSICAL EXAMINATION: HEENT: Normocephalic and atraumatic. NECK: Supple. NEUROLOGIC: Awake, alert, and disoriented to time, place and person. No aphasia. Cranial nerves II through XII are tested. Pupils reactive. EOM intact. Visual villasenor full. No facial asymmetry. Tongue midline. Motor examination: Spontaneous movement of all the extremities, upper more than the lower was noted. Deep tendon reflexes 1+. Both plantars are downgoing. Sensory appears intact. Cerebellar gait deferred. IMPRESSION AND PLAN: Dementia, encephalopathy superimposed on dementia and difficulty ambulating. CAT scan of the head was done, which shows no bleed or a stroke. Patient needs physical therapy. Continue present management. Continue Aricept. We will follow up Crhistian Buenrostro MD
[2018-01-01 07:28] LABS: HEMOGLOBIN 14.8 g/dL (14.0-18.0); MEAN CORPUSCULAR HEMOGLOBIN 30.1 pg (25.0-35.0); MEAN CORPUSCULAR HGB CONC 34.7 g/dl (31.0-37.0); MEAN PLATELET VOLUME 10.1 fl (7.0-11.0); RBC 4.91 10^6/uL (3.5-6.1); RED CELL DISTRIBUTION WIDTH 13.7 % (11.5-14.5); WHITE BLOOD COUNT 5.4 10^3/ul (4.5-11.0)
[2018-01-01 08:16] LABS: ALB/GLOB RATIO 1.2 (1.1-1.8); ALBUMIN 3.3 g/dL (3.0-4.8); ALT/SGPT 27 U/L (7-56); AST/SGOT 23 U/L (17-59); BLOOD UREA NITROGEN 16 mg/dL (7-21); CALCIUM 9.8 mg/dL (8.4-10.5); GFR AFRICAN-AMERICAN > 60; GFR NON-AFRICAN AMERICAN 54
[2018-01-01] MEDS: Insulin Reg-MEDIUM-Coverage SC SCH ×4 (08:40→21:59)
[2018-01-01] MEDS: Pantoprazole 40 mg EC Tab PO SCH (09:40)
[2018-01-01] MEDS: POLYETHYLENE GLYCOL 3350 17 GM/Dose PACKET PO SCH (09:40)
--- NOTE | 2018-01-01 12:00 | PN ---
DATE: 01/01/2018 CARDIOLOGY FOLLOWUP SUBJECTIVE: The patient is without shortness of breath, without chest pain. He is mildly confused. PHYSICAL EXAMINATION: VITAL SIGNS: Blood pressure is 142/80, the heart rates in the 70s. NECK: Negative JVD. LUNGS: Without rales. HEART: Reveals S1, S2. EXTREMITIES: Without edema. LABORATORY DATA: Hemoglobin is 14.8. Chemistries are unremarkable other than a glucose of 168. IMPRESSION: 1. Recurrent falls. 2. Early dementia. 3. Diabetes mellitus. 4. Hypercholesterolemia. 5. Abnormal EKG. PLAN: The patient is scheduled for an echocardiogram today. Ketan Franco MD
--- NOTE | 2018-01-01 13:49 | PN ---
DATE: 01/01/2018 SUBJECTIVE: I saw Dionicio in his hospital bed this morning. He is completely confused, delusional and is very much off. He was seen by Neurology and Cardiology and it could be an encephalopathy. He is on IV antibiotics, Rocephin for UTI. PHYSICAL EXAMINATION VITAL SIGNS: He has a 97.7 temperature, 77 pulse, 142/79 blood pressure, 20 respiratory rate, 95% O2 sat on room air. HEENT: His head is atraumatic, normocephalic. HEART: Regular rate. LUNGS: Decreased breath sounds, but clear. ABDOMEN: Soft, obese, nontender. EXTREMITIES: No edema. MEDICATIONS: He is currently on Aricept, Glucophage, insulin, Lipitor, Lopressor, Protonix, Rocephin, IV fluids, Zoloft and Zyloprim. LABORATORY DATA: He has a urine, which is large leukocytes and many bacteria. He is on Rocephin. He has a 5.4 white count, 14.8 hemoglobin, 42.7 hematocrit with 131 platelets. He has 1.01 INR. He has a 140 sodium, potassium 5.2, I am waiting for this morning's SMA-7 to come back. His blood sugar was 183, AST is 31, ALT is 33. Kidney functions, BUN 18, creatinine is 1.4. He is completely confused, delusional. I actually called in Psychiatry today to help us with his paranoid delusional state. Continue with Neurology and Cardiology to go to a subacute rehab. physical therapy before he goes home or further IV antibiotics. Alfonso Jha DO MTDD
[2018-01-01] MEDS: Sodium Chloride 0.45% 1,000 ML IV SCH (16:02)
--- NOTE | 2018-01-01 16:02 | EEG ---
DATE: 01/01/2018 ELECTROENCEPHALOGRAM CONDITION OF THE RECORDING: Drowsy. DIAGNOSIS: Altered mental status, MEDICATIONS: Reviewed by nurse per reconciliation sheet. INTERPRETATION: This is a 16-channel international recording. The background activity of this tracing was composed of 6 to 7 cycles per second. There was small amount of beta activity of 16 to 20 cycles per second seen in this recording. There was increased amount of theta activity of 5 to 7 cycles per second seen in this tracing. Drowsiness was characterized by the mixed beta and theta activities. The sleep was characterized by vertex transient waves, sleep spindles and bilateral slowing. Photic stimulation showed no changes in the tracing. No paroxysmal activities noted in this recording. CONCLUSION: This is an abnormal EEG due to presence of mild diffuse slowing throughout the recording consistent with mild bilateral cerebral dysfunction. No evidence of any epileptiform activity. Please clinically correlate. Gregory Buenrostro MD
[2018-01-01] MEDS: cefTRIAXone 1 gm 1 GM/100 ML BAG IVPB SCH (16:03)
--- NOTE | 2018-01-01 17:31 | CP.PCM.PCO ---
Physician Communication Note - Physician Communication Note Physician Communication Note: pt was on EEG and ECHO when Tremaine bess , will see pt am
[2018-01-01 22:37] VITALS: O2SAT 95
[2018-01-02 07:44] LABS: HEMOGLOBIN 15.4 g/dL (14.0-18.0); MEAN CELL VOLUME 86.9 fl (80.0-105.0); MEAN CORPUSCULAR HEMOGLOBIN 30.5 pg (25.0-35.0); MEAN CORPUSCULAR HGB CONC 35.1 g/dl (31.0-37.0); MEAN PLATELET VOLUME 10.1 fl (7.0-11.0); RBC 5.05 10^6/uL (3.5-6.1); RED CELL DISTRIBUTION WIDTH 13.8 % (11.5-14.5); WHITE BLOOD COUNT 6.2 10^3/ul (4.5-11.0)
[2018-01-02 08:05] LABS: ALB/GLOB RATIO 1.2 (1.1-1.8); ALBUMIN 3.4 g/dL (3.0-4.8); ALT/SGPT 25 U/L (7-56); AST/SGOT 19 U/L (17-59); BLOOD UREA NITROGEN 14 mg/dL (7-21); CALCIUM 9.8 mg/dL (8.4-10.5); GFR AFRICAN-AMERICAN > 60; GFR NON-AFRICAN AMERICAN > 60
[2018-01-02 08:09] VITALS: BP 149/86; PULSE 78; TEMP 98
[2018-01-02] MEDS: Insulin Reg-MEDIUM-Coverage SC SCH (08:41)
[2018-01-02] MEDS: Sodium Chloride 0.45% 1,000 ML IV SCH (08:43)
[2018-01-02] MEDS: Pantoprazole 40 mg EC Tab PO SCH (09:44)
[2018-01-02] MEDS: cefTRIAXone 1 gm 1 GM/100 ML BAG IVPB SCH (09:44)
[2018-01-02] MEDS: POLYETHYLENE GLYCOL 3350 17 GM/Dose PACKET PO SCH (10:07)
--- NOTE | 2018-01-02 13:11 | PN ---
DATE: 01/02/2018 SUBJECTIVE: I saw Dionicio resting comfortably in bed this morning. He was supposed to be discharged yesterday to [facility]. I had multiple calls last night and then the last call was that he did not have authorization to go, so we will keep him in the hospital until we get authorization. He needs physical therapy. He is comfortable this morning, actually brighter and more alert. I think the antibiotics started kicking in. I think the urinary tract infections starting to improve and that is why he was so off mentally. He was very calm this morning and pleasant, not delusional. MEDICATIONS: He is on IV fluids, Aricept, Glucophage, Lipitor, Lopressor, MiraLax, Protonix. He is on Rocephin, Seroquel, Zoloft, and Zyloprim. PHYSICAL EXAMINATION VITAL SIGNS: He has 98 temperature, 78 pulse, 149/86 blood pressure, 20 respiratory rate, 95% O2 sat on room air. HEENT: His head is atraumatic, normocephalic. HEART: Regular rate. LUNGS: Decreased breath sounds, but clear. ABDOMEN: Soft, obese, nontender. EXTREMITIES: No edema. PSYCHOLOGIC: Mentally, he is a little bit better today. LABORATORY DATA: He has a 6.2 white count, 15.4 hemoglobin, 43.9 hematocrit with 132 platelets. He has a 141 sodium, potassium is 4, BUN 40, creatinine 1.1, GFR is greater than 60, sugar is 191, calcium is 9.8, total bilirubin is 0.5, AST is 19, ALT is 25, alkaline phosphatase 90, total protein 6.3. Urine with large leukocytes and many bacteria and he is on Rocephin. I am hoping he continues to be mentally improving. We are trying to get him to [facility] for physical therapy before he goes home, but we did not get authorization, so he will be here until we can. Check his labs tomorrow. Out of bed to chair, physical therapy. Alfonso Jha DO
--- NOTE | 2018-01-03 01:09 | CON ---
DATE: HISTORY OF PRESENT ILLNESS: Patient is a 77-year-old white male, who has a history of severe dementia, who is currently hospitalized in the medical floor awaiting transfer to [facility]. Psychiatry was called due to change in mental status. I reviewed patient's notes and met with patient at bedside. Patient is pleasant and cooperative with my visit, though he does not know his current circumstances, current month or year. He denies having any depression, suicidal thoughts, or homicidal thoughts. Denies any prior psychiatric history, suicide attempt, hallucinations, or paranoia. It is unclear why psychiatric consult was called. His recent notes indicate that patient has generally been in control on the unit. The patient generally looks comfortable, and does not appear to be in any distress. He does not appear to be responding to internal stimuli. Patient is a little and guarded during my evaluation, but he is not demonstrating any bizarre behavior or thought process. Memory is poor consistent with diagnosis of dementia. Vital signs and medications reviewed. MEDICATIONS: Patient is not on any relevant psychiatric medications at this time except for Zoloft 25 mg daily and Seroquel 12.5 mg p.o. at bedtime p.r.n. for agitation. SOCIAL HISTORY: Patient is and resides with his . He is unemployed. Denies any drug or alcohol problems. IMPRESSION: Severe dementia. RECOMMENDATIONS: We will continue with current treatment plan. We will sign off at this time. Please call if there are any acute changes in patient's presentation. Frank Greenwood MD
--- NOTE | 2018-01-04 08:33 | DS ---
After seeing him this morning that we did have be okay to be transferred to [facility] for subacute rehab, I will discharge him today. He has got change of mentation. He floor for 3 weeks. He had UTI, to be on his Aricept, Glucophage, insulin, Lipitor, Lopressor, MiraLax, Protonix, Rocephin for five more days, Seroquel, IV fluids, Zoloft and Zyloprim. I will see him over there at subacute rehab. He needs three weeks to follow physical therapy is being discharged. Alfonso Jha DO MTDD
--- NOTE | 2018-01-04 13:34 | CARD ---
APPROVED REPORT EXAM: Two-dimensional and M-mode echocardiogram with Doppler and color Doppler. 2D DIMENSIONS Left Atrium (2D)3.1 (1.6-4.0cm)IVSd1.8 (0.7-1.1cm) LVDd3.0 (3.9-5.9cm)PWd1.8 (0.7-1.1cm) LVDs2.0 (2.5-4.0cm)FS (%) 35.0 % LVEF (%)66.0 (>50%) M-Mode DIMENSIONS Aortic Root3.10 (2.2-3.7cm)Aortic Cusp Exc.1.20 (1.5-2.0cm) Aortic Valve AoV Peak Lccaqqql609.0cm/Darinel Peak GR.6mmHg Mitral Valve MV E Ypftmglq00.9cm/sMV A Xzdbloqb85.3cm/sE/A ratio0.6 TDI E/Lateral E'0.0E/Medial E'0.0 Tricuspid Valve TR Peak [id number]/sRAP [id number] Peak Gr.10mmHg [id number] LEFT VENTRICLE There is moderate concentric left ventricular hypertrophy. The left ventricular function is normal. The left ventricular ejection fraction is within the normal range. RIGHT VENTRICLE The right ventricle is normal size. ATRIA The left atrium size is normal. The right atrium size is normal. AORTIC VALVE The aortic valve is calcified and displays decreased opening. MITRAL VALVE The mitral valve is thickened but opens well. TRICUSPID VALVE The tricuspid valve leaflets are thickened , but open well. There is mild tricuspid regurgitation. There is no pulmonary hypertension. PULMONIC VALVE The pulmonic valve is mildly thickened. <Conclusion> Good LV function LVH Calcified AoV with mild stenosis Mild TR No pulmonary hypertension
== END 2018-01-02 10:52 | DRG 689 ==
LOC: ED 14:29 → ERH 17:45 → 5RSO 20:02
PROVIDERS: ADMIT Family Medicine; ATTEND Family Medicine
DX: N39.0 Urinary tract infection, site not specified (principal); G93.40 Encephalopathy, unspecified; F03.91 Unspecified dementia, unspecified severity, with behavioral disturbance; I25.10 Atherosclerotic heart disease of native coronary artery without angina pectoris; I48.91 Unspecified atrial fibrillation; I11.0 Hypertensive heart disease with heart failure; I50.9 Heart failure, unspecified; E11.9 Type 2 diabetes mellitus without complications; E78.00 Pure hypercholesterolemia, unspecified; R29.6 Repeated falls; R62.7 Adult failure to thrive; W19.XXXA Unspecified fall, initial encounter; Y92.009 Unspecified place in unspecified non-institutional (private) residence as the place of occurrence of the external cause; Z87.01 Personal history of pneumonia (recurrent); Z87.442 Personal history of urinary calculi; Z87.891 Personal history of nicotine dependence; Z90.49 Acquired absence of other specified parts of digestive tract; Z95.5 Presence of coronary angioplasty implant and graft; F22 Delusional disorders; B96.20 Unspecified Escherichia coli [E. coli] as the cause of diseases classified elsewhere